=== PATIENT | female | born 1975 | race Caucasian/White ===

== ENCOUNTER 2020-04-26 20:29 | Emergency (ER) | payer SELFPAY ==
[~2020-04-26] VITALS: Ht 152.4 cm; Wt 70.8 kg
[2020-04-26] MEDS ORDERED: ONDANSETRON HCL INJ 2MG/ML 2ML 2 MG/ML VIAL IV STA (20:57)
[2020-04-26] MEDS ORDERED: FAMOTIDINE 20 MG/2 ML VIAL IV ONE ×2 (21:00→21:15)
--- NOTE | 2020-04-26 21:08 | Emergency Department Note ---
History of Present Illnes History of Present Illness Chief Complaint: Chest Pain History of Present Illness This is a 44 year old female no PMHX, c/o cp for 2 weeks on and off, t ightness, some sob. no smoking no BCP. 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 Any updates have been documented here. Past Medical History Recent Fever: No Clinical Suspicion of Infectio: No New/Unexplained Change in Ment: No Past Medical History: None Other Surgery: breast aug Social History Smoking Cessation: Never Smoker Counseling Performed: No Alcohol Use: Social Any Illegal Drug Use: No TB Exposure/Symptoms: No Physically hurt or threatened: No Family History Family history of heart diseas: No Review of Systems Review of Systems Constitutional: Reports no symptoms EENTM: Reports no symptoms Cardiovascular: Reports as per HPI, Reports chest pain Respiratory: Reports as per HPI Gastrointestinal: Reports no symptoms Genitourinary: Reports no symptoms Musculoskeletal: Reports no symptoms Integumentary: Reports no symptoms Neurological: Reports no symptoms Psychological: Reports no symptoms Endocrine: Reports no symptoms Hematological/Lymphatic: Reports no symptoms Review of other systems: All other systems negative Physical Exam Related Data Allergies: Coded Allergies: Penicillins (Verified Allergy, Severe, 04/26/20) Vital signs reviewed: Yes (BP is high) Physical Exam CONSTITUTIONAL Constitutional: Present well-developed, Present well-nourished HENT HENT: Present normocephalic, Present atraumatic, Present oropharynx clear/moist, Present nose normal HENT L/R: Present left ext ear normal, Present right ext ear normal EYES Eyes: Reports PERRL, Reports conjunctivae normal NECK Neck: Present ROM normal PULMONARY Pulmonary: Present effort normal, Present breath sounds normal CARDIOVASCULAR Cardiovascular: Present regular rhythm, Present heart sounds normal, Present capillary refill normal, Present normal rate GASTROINTESTINAL Abdominal: Present soft, Present nontender, Present bowel sounds normal GENITOURINARY Genitourinary: Present exam deferred SKIN Skin: Present warm, Present dry MUSCULOSKELETAL Musculoskeletal: Present ROM normal NEUROLOGICAL Neurological: Present alert, Present oriented x 3, Present no gross motor or sensory deficits PSYCHOLOGICAL Psychological: Present mood/affect normal, Present judgement normal Results Laboratory Laboratory comments cmn, ddimer nl Imaging Imaging results reviewed: Yes Procedures 12 Lead ECG Interpretation ECG Interpretation : ECG: ECG 1 Date: Apr 26, 2020 Time: 20:38 Prior ECG tracings: reviewed Rhythm: sinus rhythm Rate: normal QRS axis: normal ST segments normal: Yes T waves normal: Yes Clinical Impression: normal ECG Assessment & Plan Medical Decision Making MDM typical c/p, need to ro ACS Assessment & Plan Final Impression: (1) Chest pain (2) High blood pressure (3) Reflux esophagitis Depart Disposition: HOME, SELF-FCI Meds Active Scripts Omeprazole (OMEPRAZOLE) 40 Mg Capsule.dr, 1 TAB PO DAILY for 28 Days, #28 Prov:LISETTE ZHU MD 04/26/20 LISETTE ZHU MD Apr 26, 2020 21:08
[2020-04-26] MEDS ORDERED: ONDANSETRON HCL INJ 2MG/ML 2ML 2 MG/ML VIAL ONE (21:15)
[2020-04-26] MEDS ORDERED: OMEPRAZOLE40 MG PO (21:28)
--- NOTE | 2020-04-26 22:14 | Diagnostic Imaging Report ---
EXAMINATION: CXR 2 VIEW - HOPD INDICATION: Chest pain COMPARISON: None FINDINGS: TUBES and LINES: None. LUNGS: Normal lung volumes. Lungs are clear. No consolidations. PLEURA: No pleural effusion or pneumothorax. HEART AND MEDIASTINUM: The cardiomediastinal silhouette is unremarkable. BONES AND SOFT TISSUES: No acute osseous lesion. Suspect breast implant devices. UPPER ABDOMEN: No free air under the diaphragm. IMPRESSION: No acute thoracic radiographic abnormality. Signed by: Rickey Mirza DO on 04/26/2020 10:11 PM
[2020-04-26 22:21] VITALS: BP 137/89
== END 2020-04-26 22:26 | disposition home or self-care (01) ==
LOC: FSED 20:29
DX: R07.89 Other chest pain (principal); I10 Essential (primary) hypertension; K21.0 Gastro-esophageal reflux disease with esophagitis
CPT/HCPCS: 71046; 80053; 82553; 84484; 85025; 85379; 99284; J2405